=== PATIENT | female | born 1975 | race Two or more races ===

== ENCOUNTER 2017-02-27 22:56 | Emergency (ER) | payer OTHER ==
[~2017-02-27] VITALS: Ht 175.3 cm; Wt 78.0 kg
[~2017-02-27 22:56] MED LIST: BACTRIM DS TABL1 TAB PO; KEFLEX PO; VICODIN 5/500 T1 TAB PO
== END 2017-02-28 00:39 | disposition home or self-care (01) ==
LOC: CED 22:56 → CFTX 22:56
DX: H10.31 Unspecified acute conjunctivitis, right eye (principal)
CPT/HCPCS: 99283

== ENCOUNTER 2017-03-01 20:54 | Emergency (ER) | payer OTHER ==
[~2017-03-01] VITALS: Ht 162.6 cm; Wt 78.0 kg
== END 2017-03-01 22:12 | disposition home or self-care (01) ==
LOC: CED 20:54 → CFTX 20:54
DX: H10.11 Acute atopic conjunctivitis, right eye (principal)
CPT/HCPCS: 99283